=== PATIENT | male | born 1935 | race Caucasian/White ===

== ENCOUNTER 2018-03-26 07:02 | Day surgery (SDC) | payer OTHER, MEDICARE ==
[2018-03-25 16:59] LABS: Absolute Lymphocytes (CBC) 1.5 K/uL (0.7-4.9); Absolute Monocytes 0.9 K/uL (0.1-1.3); Absolute Neutrophil 4.7 K/uL (1.8-8.0); Basophils % 0.4 % (0-1.3); Eosinophils % 4.7 % (0-4.4); Hematocrit 35.3 % (39.6-49.0); Lymphocytes % 20.1 % (15.3-44.8); MCH 35.5 pg (27.0-35.0); MCV 100.4 fL (80-100); MPV 6.6 fL (7.6-11.3); Monocytes % 11.6 % (3.3-12.3); RBC Red Blood Cell Count 3.51 M/uL (4.33-5.43)
[2018-03-25 17:06] LABS: Albumin 4.1 g/dL (3.4-5.0); Bilirubin Direct 0.2 mg/dL (0-0.2); Bilirubin Total 0.8 mg/dL (0.2-1.0); Potassium 3.8 mmol/L (3.5-5.1); Protein, Total 7.1 g/dL (6.4-8.2)
--- NOTE | 2018-03-25 17:52 | RAD REPORT ---
EXAM DESCRIPTION: RAD - Chest Pa And Lat (2 Views) - 03/25/2018 5:45 pm CLINICAL HISTORY: Abdominal pain Chest pain. COMPARISON: No comparisons FINDINGS: The lungs are clear. The heart is upper limit normal in size. No displaced fractures. Mild thoracic spondylosis. IMPRESSION: No acute or concerning finding suspected.
[2018-03-26] MEDS ORDERED: Ringers Lactate 1,000 ML IV ONE (07:22)
[2018-03-26] MEDS ORDERED: CEFOXITIN/SWI 1gm 1 GM/10 ML SYR ONE (07:22)
[2018-03-26] MEDS ORDERED: BUPIVACAINE 0.5% PF 10 ML VIAL ONE (07:35)
[2018-03-26] MEDS ORDERED: MIDAZOLAM HCL 2 MG/2 ML INJ ONE (07:38)
[2018-03-26] MEDS ORDERED: PROPOFOL 200 MG/20 ML VIAL IV ONE (07:38)
[2018-03-26] MEDS ORDERED: FENTANYL CITR 250 MCG/5 ML ONE (07:39)
[2018-03-26] MEDS ORDERED: ROCURONIUM 50 MG/5 ML VIAL IV ONE (07:39)
[2018-03-26] MEDS ORDERED: LIDOCAINE 2% MPF 5 ML VIAL ONE (07:39)
[2018-03-26] MEDS ORDERED: ONDANSETRON HCL 40 MG/20 ML VIAL ONE (07:41)
--- NOTE | 2018-03-26 08:06 | EKG ---
Test Date: 2018-03-25 Test Time: 16:35:26 Travel Consultant: ANISHA MEASUREMENT RESULTS: Intervals: Rate: 59 IA: 210 QRSD: 86 QT: 414 QTc: 409 [place]: P: 40 IA: 210 QRS: 15 T: 17 INTERPRETIVE STATEMENTS: Sinus bradycardia with 1st degree AV block Low voltage QRS Cannot rule out Anterior infarct, age undetermined Abnormal ECG No previous ECG available for comparison Electronically Signed On 03-26-18 08:03:22 CDT by Blake Do
[2018-03-26] MEDS ORDERED: EPHEDRINE SULF 50 MG/10 ML SYR ONE (08:14)
[2018-03-26] MEDS ORDERED: KETOROLAC 30 MG/ML INJ ONE (08:27)
[2018-03-26] MEDS ORDERED: GLYCOPYRROLATE 0.2 MG/ML SYR ONE (08:28)
[2018-03-26] MEDS ORDERED: NEOSTIGMINE 1 MG/ML -5 ML SYRINGE ONE (08:28)
[2018-03-26] MEDS ORDERED: PROMETHAZINE 25 MG/ML VIAL ONE (09:05)
[2018-03-26] MEDS ORDERED: MEPERIDINE HCL 25 MG/0.5 ML ONE ×2 (09:05→09:13)
[2018-03-26] MEDS ORDERED: CODEINE 30MG/APAP 300MG TAB ONE (10:41)
--- NOTE | 2018-03-26 16:56 | OP ---
Surgeon: Zac Nguyen MD Dirt Bike Mechanic: TYRESE Bates. Preoperative Diagnosis: Symptomatic cholelithiasis. Postoperative Diagnosis: Symptomatic cholelithiasis. Procedure: Laparoscopic cholecystectomy. Estimated Blood Loss: Minimal. Specimen: Gallbladder. Findings: As above. Anesthesia: General. Complications: None. Disposition: The patient tolerated the procedure in stable condition and taken to Recovery in good g eneral condition. Operative Note: The patient was brought to the OR and placed in supine position. General anesthesia was begun. The patient was prepped and draped in usual sterile fashion. Marcaine 0.5% was infiltra tigre locally. A 15-blade was used to make a 1-cm supraumbilical midline incision. Subcutaneous tissu e divided. The fascia was identified and divided. A #1 Vicryl stay suture was placed. Peritoneal c avity was entered with blunt dissection. A 12-mm trocar was placed into the peritoneal cavity under direct vision. Pneumoperitoneum was established and then three 5-mm trocars were placed, 1 in the ep igastrium just to the right of midline and 2 in the right subcostal region. Laparoscopy revealed inf lammation of the gallbladder with some omental adhesions, which were gently taken down with sharp and blunt dissection. Bleeding controlled with cautery. Fundus retracted superiorly. Infundibulum keanu ntified and retracted inferolaterally. Cystic duct and cystic artery were clearly identified. Clips placed. Both structures divided and then cautery used to remove the gallbladder from the liver bed. Bleeding on the liver bed was controlled with cautery. The gallbladder was retrieved through the u mbilicus via an EndoCatch bag. Right upper quadrant was irrigated. Effluent was clear. No evidence of bleeding or bile leakage appreciated. Subsequently, all trocars were removed under direct vision . Stay sutures were tied to each other to approximate the fascial defect. Subcutaneous wounds irrig ated and bleeding controlled with cautery. A 3-0 chromic used to reapproximate subcutaneous tissue a nd close the skin. Sterile dressing was applied. The patient awakened and taken to Recovery in good general condition. Discharge Note: The patient will go to Day Surgery and home when stable. Disposition: Home. Condition: Stable. Discharge Instructions: Resume home meds and diet. Activity as tolerated. No heavy lifting. Remov e outer dressing in 2 days. Shower. Keep wound clean and dry. Followup in my office in a week. Ca ll for appointment. Tylenol No. 3 one tablet p.o. q.4 p.r.n. pain. Incentive spirometry as ordered. Keep Steri-Strips on at all times. VICKIE/BRITNEY Voice ID: [id number] Report ID: [id number]
== END 2018-03-26 11:50 | disposition home or self-care (01) ==
LOC: OR 07:02
PROVIDERS: ATTEND Surgery
PROC: 0FT44ZZ Resection of Gallbladder, Percutaneous Endoscopic Approach (ICD-10-PCS; principal; 2018-03-26 08:15)
DX: K80.10 Calculus of gallbladder with chronic cholecystitis without obstruction (principal); I10 Essential (primary) hypertension
CPT/HCPCS: 36415; 47562; 71046; 80048; 80076; 82150; 85025; 88304; 93005; J2175 ×2; J2405; J2710; J2250; J2550

== ENCOUNTER 2024-05-02 11:29 | Emergency (ER) | payer OTHER, MEDICARE ==
[2024-05-02] MEDS ORDERED: MORPHINE 4 MG/ML SYR ONE (12:10)
[2024-05-02] MEDS ORDERED: ONDANSETRON 4 MG/2 ML VIAL ONE (12:10)
[2024-05-02 12:32] LABS: Absolute Eosinophils 0.4 K/uL (0-0.5); Absolute Lymphocytes (CBC) 1.6 K/uL (0.7-4.9); Absolute Monocytes 0.4 K/uL (0.1-1.3); Absolute Neutrophil 2.6 K/uL (1.8-8.0); Basophils % 0.2 % (0-1.3); Eosinophils % 8.2 % (0-4.4); Hematocrit 35.6 % (39.6-49.0); Hemoglobin 12.3 g/dL (13.6-17.9); MCH 34.8 pg (27.0-35.0); MCHC 34.6 g/dL (32.0-36.0); MCV 100.5 fL (80-100); Monocytes % 7.2 % (3.3-12.3); Neutrophils % 52.4 % (41.7-73.7); Platelets 276 thou/uL (152-406); RBC Red Blood Cell Count 3.54 M/uL (4.33-5.43); Red Cell Distribution Width 11.8 % (12.1-15.2)
--- NOTE | 2024-05-02 12:34 | RAD REPORT ---
EXAM DESCRIPTION: Андрейt Single View05/02/2024 12:23 pm CLINICAL HISTORY: ABDOMINAL DISTENTION COMPARISON: Chest Pa And Lat (2 Views) dated 10/23/2021; Chest Pa And Lat (2 Views) dated 03/25/2018 TECHNIQUE: Portable AP view of the chest. FINDINGS: The lungs are clear. No pneumothorax or effusion. The cardiomediastinal contours are unre markable. IMPRESSION: No acute cardiopulmonary process.
[2024-05-02 12:54] LABS: PT Prothrombin Time 11.7 SECONDS (9.4-12.5); PTT, Activated Partial Thromb 31.3 SECONDS (24.3-36.9); Protime INR 1.05
[2024-05-02 12:55] LABS: Albumin 3.3 g/dL (3.4-5.0); Anion Gap 9.9 mEq/L (5.0-15.0); Bilirubin Direct 0.2 mg/dL (0-0.2); Bilirubin Indirect, Calculated 0.7 mg/dL (0.2-0.8); Bilirubin Total 0.9 mg/dL (0.2-1.0); Globulin 3.2 g/dL (2.3-3.5); Protein, Total 6.5 g/dL (6.4-8.2); Troponin High Sensitivity 11.3 pg/mL (<58.9)
[2024-05-02 12:56] LABS: Magnesium 1.9 mg/dL (1.6-2.4); Potassium 2.9 mEq/L (3.5-5.1)
--- NOTE | 2024-05-02 13:29 | RAD REPORT ---
EXAM DESCRIPTION: CT - Abdomen Pelvis W Contrast - 05/02/2024 1:14 pm CLINICAL HISTORY: Abdominal pain COMPARISON: 2022 TECHNIQUE: Computed axial tomography of the abdomen pelvis was obtained. 100 cc Isovue-300 was admin istered intravenously. Oral contrast was not requested which limits evaluation of bowel and appendix All CT scans are performed using dose optimization technique as appropriate and may include automated exposure control or mA/KV adjustment according to patient size. FINDINGS: Tiny low-density lesion unchanged likely benign Spleen and, and pancreas unremarkable. Mild fullness adrenal glands is benign Bilateral renal cysts. Largest lies within the right kidney measuring 3.8 centimeters There is no evidence of diverticulitis. Cholecystectomy. Small umbilical hernia contains fat. Prostate gland is moderately enlarged. 4.2 centimeter duodenum diverticulum Spondylosis lumbar spine The rectum is mildly distended with stool IMPRESSION: No acute abnormality is displayed.
--- NOTE | 2024-05-02 14:54 | EDPHYS ---
Physician Documentation [facility] Name: Brent Sandoval Age: 88 yrs Sex: Male : 1935 Arrival Date: 05/02/2024 Time: 11:29 Bed 12 Private MD: ED Physician Aniket Mendieta HPI: 05/02 11:45 This 88 yrs old Male presents to ER via EMS with complaints of Abdominal Pain - nausea cp and vomiting. 11:45 The patient presents with abdominal pain that is diffuse, abdominal distention that is cp diffuse. 11:45 Onset: The symptoms/episode began/occurred yesterday, and became worse today. The cp symptoms do not radiate. Associated signs and symptoms: Pertinent positives: nausea and vomiting, Pertinent negatives: constipation, diarrhea, dysuria, fever, testicular pain, vomiting. The symptoms are described as constant. Modifying factors: the symptoms are aggravated by pressure. 11:45 Severity of pain: in the emergency department the pain has improved mildly. 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 - Infectious Disease History:: uknown. - Social history:: Smoking status: Patient denies any tobacco usage or history of. ROS: 11:50 Abdomen/GI: Positive for abdominal pain, nausea, abdominal distension, Negative for cp vomiting, diarrhea, constipation, rectal bleeding, 11:50 Constitutional: Negative for body aches, chills, fever, poor PO intake, cp 11:50 Eyes: Negative for injury, pain, redness, and discharge, cp 11:50 ENT: Negative for drainage from ear(s), ear pain, sore throat, difficulty swallowing, difficulty handling secretions, 11:50 Cardiovascular: Negative for chest pain, edema, palpitations, 11:50 Respiratory: Negative for cough, shortness of breath, wheezing, 11:50 Back: Negative for pain at rest, pain with movement, 11:50 : Negative for urinary symptoms, testicular pain 11:50 Neuro: Negative for altered mental status, headache, weakness, 11:50 All other systems are negative, Exam: 11:55 Constitutional: The patient appears in no acute distress, alert, awake, cp non-diaphoretic, non-toxic, well developed, well nourished, uncomfortable, 11:55 Head/Face: Normocephalic, atraumatic. cp 11:55 Eyes: Periorbital structures: appear normal, Conjunctiva: normal, no exudate, no injection, Sclera: no appreciated abnormality, Lids and lashes: appear normal, bilaterally, 11:55 ENT: External ear(s): are unremarkable, Nose: is normal, Mouth: Lips: moist, Oral mucosa: moist, Posterior pharynx: Airway: no evidence of obstruction, patent, 11:55 Neck: ROM/movement: is normal, is supple, without pain, no range of motions limitations, 11:55 Chest/axilla: Inspection: normal, 11:55 Cardiovascular: Rate: normal, Rhythm: regular, Edema: is not appreciated, JVD: is not appreciated, 11:55 Respiratory: the patient does not display signs of respiratory distress, Respirations: normal, no use of accessory muscles, no retractions, labored breathing, is not present, Breath sounds: are clear throughout, no decreased breath sounds, no stridor, no wheezing, 11:55 Abdomen/GI: Inspection: distension, that is mild, Bowel sounds: active, all quadrants, Palpation: soft, in all quadrants, moderate abdominal tenderness, in all quadrants, rebound tenderness, is not appreciated, involuntary guarding, is not appreciated, 11:55 Back: pain, is absent, ROM is normal, 11:55 Neuro: Orientation: to person, place \T\ time. Mentation: is normal, Motor: moves all fours, strength is normal, Sensation: is normal, 12:15 ECG was reviewed by the Attending Physician. cp Vital Signs: 11:36 BP 167 / 84; Pulse 70; Resp 19; Temp 98.7(O); Pulse Ox 98% on R/A; ap3 13:00 BP 169 / 87; Pulse 69; Resp 18; Pulse Ox 98% on R/A; tl4 14:00 BP 162 / 83; Pulse 68; Resp 18; Pulse Ox 97% on R/A; tl4 15:00 BP 134 / 86; Pulse 65; Resp 18; Pulse Ox 98% on R/A; tl4 16:00 BP 148 / 76; Pulse 68; Resp 18; Temp 98(O); Pulse Ox 97% on R/A; Pain 0/10; tl4 16:00 Pain Scale: Adult tl4 MDM: 11:37 Patient medically screened. cp 14:52 Data reviewed: vital signs, nurses notes, lab test result(s), EKG, radiologic studies, cp CT scan, plain films, and as a result, I will discharge patient. 14:52 Differential diagnosis: appendicitis, bowel obstruction, cholecystitis, Cholelithiasis, cp diverticulitis, gastritis, gastroesophageal reflux disease, GI Bleed, sympomatic leaking abdominal aortic aneurysm, Mesenteric ischemia or infarction, non-specific abd pain, pancreatitis, Peptic Ulcer Disease, Perf. Duodenal Ulcer, Perf. Gastric Ulcer, Pyelonephritis, Ureterolithiasis, urinary tract infection. I considered the following discharge prescriptions or medication management in the emergency department Medications were administered in the Emergency Department. See MAR. Independent interpretation of the following test(s) in the Emergency Department EKG: See my EKG interpretation above. Counseling: I had a detailed discussion with the patient and/or guardian regarding the historical points, exam findings, and any diagnostic results supporting the discharge/admit diagnosis, lab results, radiology results, to return to the emergency department if symptoms worsen or persist or if there are any questions or concerns that arise at home. Response to treatment: the patient's symptoms have markedly improved after treatment, and as a result, I will discharge patient. Special discussion: Based on the patient's Hx, exam, and Dx evaluation, there is no indication for emergent surgery or inpatient Tx. It is understood by the patient/guardian that if the Sx's persist or worsen they need to return immediately for re-evaluation. 05/02 11:43 Order name: Basic Metabolic Panel; Complete Time: 14:10 05/02 11:43 Order name: CBC with Diff; Complete Time: 14:10 05/02 11:43 Order name: LFT's; Complete Time: 14:10 05/02 11:43 Order name: Magnesium; Complete Time: 14:10 05/02 11:43 Order name: PT-INR; Complete Time: 14:10 05/02 11:43 Order name: Troponin HS; Complete Time: 14:10 05/02 11:43 Order name: Ptt, Activated; Complete Time: 14:10 05/02 11:43 Order name: Lipase; Complete Time: 14:10 05/02 11:43 Order name: XRAY Chest (1 view); Complete Time: 14:10 05/02 11:43 Order name: CT Abd/Pelvis - IV Contrast Only; Complete Time: 14:10 05/02 11:43 Order name: EKG; Complete Time: 11:44 05/02 11:43 Order name: Cardiac monitoring; Complete Time: 12:13 05/02 11:43 Order name: EKG - Nurse/Tech; Complete Time: 12:13 05/02 11:43 Order name: IV Saline Lock; Complete Time: 12:19 05/02 11:43 Order name: Labs collected and sent; Complete Time: 12:19 05/02 11:43 Order name: O2 Per Protocol; Complete Time: 12:05 05/02 11:43 Order name: O2 Sat Monitoring; Complete Time: 12:05 cp EC:15 Rate is 69 beats/min. Rhythm is regular. ND interval is normal. QRS interval is normal. cp QT interval is normal. T waves are Inverted in lead aVR. Interpreted by me. Reviewed by me. Administered Medications: 12:40 Drug: Ondansetron IVP 4 mg IVP once; over 2 minutes Route: IVP; Infused Over: 2 mins; tl4 Site: left hand; 13:00 Follow up: Response: No adverse reaction tl4 12:40 Drug: morphine IVP or IV 5 mg IVP once over 4 mins Route: IVP; Infused Over: 4 mins; tl4 Site: left hand; 13:00 Follow up: Response: No adverse reaction; Pain is decreased tl4 15:50 Drug: Lactulose PO 30 grams 45 ml PO once Volume: 45 ml; Route: PO; tl4 16:25 Follow up: Response: No adverse reaction tl4 15:50 Drug: Dulcolax ND Suppository 10 mg ND once Route: ND; tl4 16:25 Follow up: Response: No adverse reaction tl4 15:50 Drug: Potassium PO Effervescent Tablet 50 mEq PO once; dissolve in 4 ounces of water or tl4 juice Route: PO; 16:25 Follow up: Response: No adverse reaction tl4 15:50 Drug: Potassium PO Effervescent Tablet 25 mEq PO once; dissolve in 4 ounces of water or tl4 juice Route: PO; 16:25 Follow up: Response: No adverse reaction tl4 Disposition Summary: 05/02/24 14:53 Discharge Ordered Notes: Location: Home cp Problem: new cp Symptoms: have improved cp Condition: Stable cp Diagnosis - Nausea with vomiting, unspecified cp - Hypokalemia cp - Constipation, unspecified cp Followup: cp - With: Private Physician - When: 1 - 2 days - Reason: Worsening of condition Discharge Instructions: - Discharge Summary Sheet cp - Constipation, Adult cp - Potassium Content of Foods cp - Nausea and Vomiting, Adult cp Forms: - Medication Reconciliation Form cp - Antibiotic Education cp - Prescription Opioid Use cp - Patient Portal Instructions cp - Leadership Thank You Letter cp Prescriptions: - Potassium Chloride 20 meq Oral Packet - take 1 packet ORAL route once daily 1 packet in 6 (six) ounces of water or cp juice; Take after meal; 5 packet; Refills: 0, Product Selection Permitted Addendum: 05/06/2024 07:45 I was immediately available for consultation during this patient's visit. I did not e c2 personally see the patient or discuss the patient with the KRISTEN. . Signatures: Dispatcher [employer] EDUT David Centeno PA PA cp Yelena Moralez RN RN ap3 Aniket Menideta MD MD ec2 Hans Sullivan RN RN tl4 Corrections: (The following items were deleted from the chart) 05/02 11:44 11:44 Abdomen Pelvis W Con+CT.RAD.BRZ ordered. EDUT EDMS 14:54 14:53 Fecal impaction cp cp 05/03 00:57 05/02 11:45 Associated signs and symptoms: Pertinent positives: nausea, Pertinent cp negatives: constipation, diarrhea, dysuria, fever, testicular pain, vomiting, cp
--- NOTE | 2024-05-02 14:54 | ER ---
Nurse's Notes [facility] Name: Brent Sandoval Age: 88 yrs Sex: Male : 1935 Arrival Date: 05/02/2024 Time: 11:29 Bed 12 Private MD: Diagnosis: Nausea with vomiting, unspecified;Hypokalemia;Constipation, unspecified Presentation: 05/02 11:36 Chief complaint: EMS states: they were called to the patients home for complaints of ap3 nausea, vomiting and abdominal pain that started yesterday. Coronavirus screen: At this time, the client does not indicate any symptoms associated with coronavirus-19. Ebola Screen: No symptoms or risks identified at this time. Initial Sepsis Screen: Does the patient meet any 2 criteria? No. Patient's initial sepsis screen is negative. Does the patient have a suspected source of infection? No. Patient's initial sepsis screen is negative. Risk Assessment: Do you want to hurt yourself or someone else? Patient reports no desire to harm self or others. Onset of symptoms was May 01, 2024. 11:36 Method Of Arrival: EMS: [facility] ap3 11:36 Acuity: GILMAR 3 ap3 Triage Assessment: 11:38 General: Appears ill, Behavior is cooperative, appropriate for age, Reports feeling ill ap3 for 12-24 hours. Pain: Complains of pain in abdomen Pain began 1 day ago. Neuro: Level of Consciousness is awake, alert, obeys commands. Cardiovascular: Patient's skin is warm and dry. Respiratory: Airway is patent Respiratory effort is even, unlabored, Respiratory pattern is regular, symmetrical. GI: Reports lower abdominal pain, upper abdominal pain, nausea, vomiting. 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 - Infectious Disease History:: uknown. - Social history:: Smoking status: Patient denies any tobacco usage or history of. Screenin:[address] [facility] ED Fall Risk Assessment (Adult) History of falling in the last 3 months, tl4 including since admission No falls in past 3 months (0 pts) Confusion or Disorientation No (0 pts) Intoxicated or Sedated No (0 pts) Impaired Gait No (0 pts) Mobility Assist Device Used No (0 pt) Altered Elimination No (0 pt) Score/Fall Risk Level 0 - 2 = Low Risk Oriented to surroundings, Maintained a safe environment, Educated pt \T\ family on fall prevention, incl call for assistance when getting out of bed, Assessed \T\ reinforced patient's understanding of fall precautions. Abuse screen: Denies threats or abuse. Denies injuries from another. Nutritional screening: No deficits noted. Tuberculosis screening: No symptoms or risk factors identified. Assessment: 12:15 General: Appears uncomfortable, Behavior is cooperative. Pain: Complains of pain in tl4 abdomen. Neuro: Level of Consciousness is awake, alert, obeys commands, Oriented to person, place, time, situation, Speech is normal. Cardiovascular: Capillary refill < 3 seconds Patient's skin is warm and dry. Respiratory: Airway is patent Respiratory effort is even, unlabored, Respiratory pattern is regular, symmetrical. GI: Reports lower abdominal pain, upper abdominal pain, nausea, vomiting. : No deficits noted. EENT: No signs and/or symptoms were reported regarding the EENT system. Derm: No signs and/or symptoms reported regarding the dermatologic system. Musculoskeletal: No signs and/or symptoms reported regarding the musculoskeletal system. 17:18 Reassessment: Pt left without formal discharge paperwork. Called residence and patient tl4 requested I give them to his caregiver. Verbal discharge instructions given to patient's caregiver. Prescription for potassium will be called in to [facility] in [place]. No additional questions. Vital Signs: 11:36 BP 167 / 84; Pulse 70; Resp 19; Temp 98.7(O); Pulse Ox 98% on R/A; ap3 13:00 BP 169 / 87; Pulse 69; Resp 18; Pulse Ox 98% on R/A; tl4 14:00 BP 162 / 83; Pulse 68; Resp 18; Pulse Ox 97% on R/A; tl4 15:00 BP 134 / 86; Pulse 65; Resp 18; Pulse Ox 98% on R/A; tl4 16:00 BP 148 / 76; Pulse 68; Resp 18; Temp 98(O); Pulse Ox 97% on R/A; Pain 0/10; tl4 16:00 Pain Scale: Adult tl4 ED Course: 11:36 Patient arrived in ED. ap3 11:37 David Centeno PA is PHCP. cp 11:37 Aniket Mendieta MD is Attending Physician. cp 11:37 Triage completed. ap3 11:39 Arm band placed on right wrist. ap3 11:39 Patient has correct armband on for positive identification. Bed in low position. Call ap3 light in reach. Side rails up X2. Client placed on continuous cardiac and pulse oximetry monitoring. NIBP monitoring applied. costumed character on. Pulse ox on. NIBP on. 12:15 Hans Sullivan, RONA is Primary Nurse. tl4 12:17 Provided Education on: ed process, call damon. Door closed. Noise minimized. Moved to 4 private room. Warm blanket given. 12:17 No provider procedures requiring assistance completed. tl4 12:19 Initial lab(s) drawn, by me, sent to lab. Inserted saline lock: 20 gauge in left wrist, zm using aseptic technique. Blood collected. Flushed with 10 mL NS. 12:19 Lipase Sent. zm 12:19 Ptt, Activated Sent. zm 12:19 Basic Metabolic Panel Sent. zm 12:19 CBC with Diff Sent. zm 12:19 LFT's Sent. zm 12:19 Magnesium Sent. zm 12:19 PT-INR Sent. zm 12:19 Troponin HS Sent. zm 12:25 XRAY Chest (1 view) In Process Unspecified. EDMS 13:16 CT Abd/Pelvis - IV Contrast Only In Process Unspecified. EDMS 16:05 IV discontinued, intact, bleeding controlled, No redness/swelling at site. Pressure tl4 dressing applied. Administered Medications: 12:40 Drug: Ondansetron IVP 4 mg IVP once; over 2 minutes Route: IVP; Infused Over: 2 mins; tl4 Site: left hand; 13:00 Follow up: Response: No adverse reaction tl4 12:40 Drug: morphine IVP or IV 5 mg IVP once over 4 mins Route: IVP; Infused Over: 4 mins; tl4 Site: left hand; 13:00 Follow up: Response: No adverse reaction; Pain is decreased tl4 15:50 Drug: Lactulose PO 30 grams 45 ml PO once Volume: 45 ml; Route: PO; tl4 16:25 Follow up: Response: No adverse reaction tl4 15:50 Drug: Dulcolax IL Suppository 10 mg IL once Route: IL; tl4 16:25 Follow up: Response: No adverse reaction tl4 15:50 Drug: Potassium PO Effervescent Tablet 50 mEq PO once; dissolve in 4 ounces of water or tl4 juice Route: PO; 16:25 Follow up: Response: No adverse reaction tl4 15:50 Drug: Potassium PO Effervescent Tablet 25 mEq PO once; dissolve in 4 ounces of water or tl4 juice Route: PO; 16:25 Follow up: Response: No adverse reaction tl4 Medication: 12:16 VIS not applicable for this client. tl4 Outcome: 14:53 Discharge ordered by . mya 16:12 Patient left the ED. tl4 16:17 Discharged to verbal discharge orders, pt left before signing tl4 16:17 Condition: stable 16:17 Discharge instructions given to patient, family, Instructed on discharge instructions, follow up and referral plans. medication usage, Demonstrated understanding of instructions, follow-up care, medications, Prescriptions given X 1, Signatures: Dispatcher [employer] EDMS David Centeno PA PA cp Prokisch, Amanda RN RN ap3 Sherrell Lal Toni, RN RN tl4
[2024-05-02] MEDS ORDERED: BISACODYL 10 MG RECTAL SUPP ONE (15:28)
[2024-05-02] MEDS ORDERED: POTASSIUM 25 MEQ EFFERV TAB ONE (15:28)
[2024-05-02] MEDS ORDERED: LACTULOSE 20 GM/30 ML UCUP ONE (15:29)
[2024-05-02 16:44] VITALS: BP 167/84; TEMP 98.7; O2SAT 98
--- NOTE | 2024-05-03 12:42 | EKG ---
Test Date: 2024-05-02 Test Time: 12:07:23 Quality Assurance Practice Manager: ANA MEASUREMENT RESULTS: Intervals: Rate: 69 CT: 176 QRSD: 80 QT: 450 QTc: 482 [place]: P: 67 CT: 176 QRS: 13 T: 42 INTERPRETIVE STATEMENTS: Normal sinus rhythm Prolonged QT Abnormal ECG Compared to ECG 03/25/2018 16:35:26 Prolonged QT interval now present Sinus bradycardia no longer present First degree AV block no longer present Myocardial infarct finding no longer present Electronically Signed On 05-03-24 12:38:54 CDT by Nikhil Farris
== END 2024-05-02 16:12 | disposition home or self-care (01) ==
LOC: ER 11:29
DX: E87.6 Hypokalemia (principal); K59.00 Constipation, unspecified
CPT/HCPCS: 93005; 85025; 80048; 36415; 83735; 85610; 80076; 85730; 84484; 83690; 74177; 71045; Q9967; J2405; 96374; 96375; 99285